=== PATIENT | female | born 1980 | race Caucasian/White ===

== ENCOUNTER 2017-02-27 21:44 | Emergency (ER) | payer BC, OTHER ==
[~2017-02-27] VITALS: Ht 167.6 cm; Wt 79.2 kg
[~2017-02-27 21:44] MED LIST: AMOXICILLIN500 MG PO; BACTROBAN2 % EX; CIPRO500 MG OR; CORTISPORIN OTI10 ML AD; CYMBALTA30 MG OR; DICLOXACILL500 MG PO; FLAGYL500 MG OR; HYDROCO/APAP1 TA9 PO; LORTAB 5 OR; LORTAB 5/3255 MG PO; LORTAB 7.5 OR; MULTIVITAMI1 OR; NAPROSYN500 MG PO; NO CURRENT MEDS; NYSTATIN100000 M3 TOP; PHENTERMINE HCL30 MG PO; PRENATA3 OR; PRENATAL1 TAB OR
[2017-02-27 23:00] LABS: HEMATOCRIT 44.2 % (37.0-47.0); HEMOGLOBIN 15.2 g/dl (12.0-16.0); IMMATURE GRANULOCYTES 0.3 % (0.0-1.0); MEAN CORPUSCULAR HGB CONC 34.4 g/L CALC (32.0-36.0); NEUT# 4.48 thou/uL (2.00-7.15); RED BLOOD COUNT 4.91 mill/uL (4.20-5.60); RED CELL DISTRI WIDTH 11.8 % (11.5-15.5)
[2017-02-27 23:05] LABS: URINE BILIRUBIN - DIPSTICK NEGATIVE (NEGATIVE); URINE BLOOD DIPSTICK NEGATIVE (NEGATIVE); URINE CLARITY SLIGHT CLOUDY; URINE COLOR YELLOW; URINE GLUCOSE - DIPSTICK NEGATIVE (NEGATIVE); URINE KETONE NEGATIVE (NEGATIVE); URINE LEUK ESTERASE NEGATIVE (NEGATIVE); URINE NITRITE - DIPSTICK NEGATIVE (Negative); URINE PROTEIN - DIPSTICK NEGATIVE (NEG-TRACE); URINE SPECIFIC GRAVITY 1.025; URINE UROBILINOGEN - DIPSTICK 0.2 E.U./dL (0.2)
[2017-02-27 23:16] LABS: ALBUMIN 4.6 g/dL (3.2-5.0); ALKALINE PHOSPHATASE 81 u/l (38-126); ANION GAP 18 (6-22 (CALC)); BILIRUBIN, TOTAL 0.4 mg/dL (0.0-1.4); BUN 14 mg/dL (7-17); BUN/CREATININE RATIO 18 (12-20 (CALC)); CALCIUM 9.8 mg/dL (8.4-10.2); CARBON DIOXIDE 26 mmol/l (22-30); CHLORIDE 105 mmol/l (95-108); CREATININE 0.8 mg/dL (0.5-1.0); GFR > 60 ML/MIN (>=60 (CALC)); GFR FOR AFR.AMER. > 60 ML/MIN (>=60 (CALC)); GLUCOSE 94 mg/dL (65-105); POTASSIUM 3.9 mmol/l (3.5-5.1); SGOT/AST 20 u/l (14-36); SGPT/ALT 32 u/l (9-52); SODIUM 144 mmol/l (137-146); TOTAL PROTEIN 7.8 g/dL (6.3-8.2)
[2017-02-28] VITALS: BP 128/77
== END 2017-02-28 | disposition home or self-care (01) | DRG 93 ==
LOC: ED 21:44
PROVIDERS: Emergency Medicine
DX: R20.2 Paresthesia of skin (principal)

== ENCOUNTER 2018-11-12 15:57 | Emergency (ER) | payer OTHER ==
[~2018-11-12] VITALS: Ht 167.6 cm; Wt 75.0 kg
[2018-11-12] MEDS ORDERED: FLEXERIL PO (18:23)
[2018-11-12] MEDS ORDERED: MEDDOSEPAK PO (18:23)
[2018-11-12] MEDS ORDERED: ULTRAM50 M1 PO (18:23)
[2018-11-12 18:35] VITALS: BP 131/74
== END 2018-11-12 18:35 | disposition home or self-care (01) | DRG 563 ==
LOC: ED 15:57
DX: S39.012A Strain of muscle, fascia and tendon of lower back, initial encounter (principal); M54.5 Low back pain; X50.0XXA Overexertion from strenuous movement or load, initial encounter; Y93.89 Activity, other specified; Y92.009 Unspecified place in unspecified non-institutional (private) residence as the place of occurrence of the external cause

== ENCOUNTER 2020-06-15 10:22 | Emergency (ER) | payer OTHER ==
[~2020-06-15] VITALS: Ht 167.6 cm; Wt 86.3 kg
[~2020-06-15 10:22] MED LIST changes: +FLEXERIL PO; +MEDDOSEPAK PO; +ULTRAM50 M1 PO
[2020-06-15 11:06] LABS: HEMATOCRIT 47.2 % (37.0-47.0); HEMOGLOBIN 15.4 g/dl (12.0-16.0); IMMATURE GRANULOCYTES 0.2 % (0.0-5.0); MEAN CELL VOLUME 90.2 fL CALC (80.0-100.0); MEAN CORPUSCULAR HGB 29.4 pG CALC (26.0-32.0); MEAN CORPUSCULAR HGB CONC 32.6 g/dL CAL (32.0-36.0); NEUT# 3.11 thou/uL (2.00-7.15); RED BLOOD COUNT 5.23 mill/uL (4.20-5.60); RED CELL DISTRI WIDTH 12.3 % (11.5-15.5)
[2020-06-15] MEDS ORDERED: ADDERALL30 MG PO (11:15)
[2020-06-15] MEDS ORDERED: ALPRAZOLAM0.5 MG PO (11:16)
[2020-06-15 11:19] LABS: ALBUMIN 4.4 g/dL (3.2-5.0); ALKALINE PHOSPHATASE 78 u/l (38-126); ANION GAP 13 (6-22 (CALC)); BILIRUBIN, TOTAL 0.6 mg/dL (0.0-1.4); BUN 14 mg/dL (7-17); BUN/CREATININE RATIO 18 (12-20 (CALC)); CARBON DIOXIDE 25 mmol/l (22-30); CHLORIDE 105 mmol/l (95-108); CREATININE 0.8 mg/dL (0.5-1.0); GFR > 60 ML/MIN (>=60 (CALC)); GFR FOR AFR.AMER. > 60 ML/MIN (>=60 (CALC)); POTASSIUM 3.9 mmol/l (3.5-5.1); SGOT/AST 46 u/l (14-36); SODIUM 139 mmol/l (137-146)
[2020-06-15 13:33] VITALS: BP 108/55
== END 2020-06-15 13:34 | disposition home or self-care (01) | DRG 556 ==
LOC: ED 10:22
PROVIDERS: Family Medicine
DX: M62.838 Other muscle spasm (principal)
CPT/HCPCS: J0171; Q9967

== ENCOUNTER 2024-08-17 17:11 | Emergency (ER) | payer SELFPAY ==
[~2024-08-17] VITALS: Ht 167.6 cm; Wt 68.0 kg
[~2024-08-17 17:11] MED LIST changes: +ADDERALL30 MG PO; +ALPRAZOLAM0.5 MG PO
[2024-08-17] MEDS ORDERED: METHOCARBAMOL 500 MG/TAB PO ONE (17:40)
[2024-08-17] MEDS ORDERED: MORPHINE SULFATE 4 MG/ML VIAL IV ONE (18:45)
[2024-08-17] MEDS ORDERED: ONDANSETRON HCl 4 MG/2 ML SDV IV ONE ×2 (18:45→21:25)
[2024-08-17] MEDS ORDERED: HYDROmorphone HCL 2 MG/AMP IV ONE ×2 (19:20→21:25)
[2024-08-17] MEDS ORDERED: DECADRON4 MG PO (21:08)
[2024-08-17] MEDS ORDERED: BACLOFEN10 M1 PO (21:08)
[2024-08-17] MEDS ORDERED: NAPROXEN EC500 MG PO (21:08)
[2024-08-17] MEDS ORDERED: PERCOCET 5/325M1 TAB PO (21:08)
[2024-08-17] MEDS ORDERED: BACLOFEN 10 MG/TAB PO ONE (21:25)
[2024-08-17 21:49] VITALS: BP 120/67
== END 2024-08-17 21:49 | disposition home or self-care (01) | DRG 552 ==
LOC: ED 17:11
DX: M47.817 Spondylosis without myelopathy or radiculopathy, lumbosacral region (principal); M62.830 Muscle spasm of back
CPT/HCPCS: J1100; J1171; J2405